=== PATIENT | female | born 1990 | race Caucasian/White ===

== ENCOUNTER 2016-08-08 19:57 | Emergency (ER) | payer MEDICAID | END 2016-08-08 21:29 | disposition home or self-care (01) | LOC: D.ER 19:57 | DX: J11.1 Influenza due to unidentified influenza virus with other respiratory manifestations (principal); J02.0 Streptococcal pharyngitis; F17.200 Nicotine dependence, unspecified, uncomplicated; E11.9 Type 2 diabetes mellitus without complications; Z79.4 Long term (current) use of insulin ==

== ENCOUNTER 2017-01-05 02:15 | Emergency (ER) | payer SELFPAY ==
[2017-01-05 02:50] LABS: BASOPHILS 0.3 % (0-2); EOSINOPHILS 0.5 % (0-7); HEMATOCRIT 38.6 % (36.0-48.0); HEMOGLOBIN 13.5 g/dL (12-16); IMMATURE GRANULOCYTES 1.1 % (0-5); LYMPHOCYTES 38.2 % (15-50); MCH 30.6 pg (26.0-34.0); MCV 87.5 fL (80.0-100.0); MEAN PLATELET VOLUME 10.3 fL (7.4-10.4); MONOCYTES 12.5 % (2-11); NEUTROPHILS 47.4 % (40-80); PLATELET COUNT 190 10x3/uL (130-400); RBC 4.41 10x6/uL (4.00-5.40); RDW 13.8 % (11.5-14.5); WBC 6.2 10x3/uL (4.8-10.8)
[2017-01-05 02:52] LABS: APPEARANCE CLEAR (CLEAR); BILIRUBIN NEGATIVE (NEGATIVE); COLOR YELLOW (YELLOW); GLUCOSE 1000 mg/dL (NEGATIVE); HCG URINE NEGATIVE (NEGATIVE); KETONE LARGE mg/dL (NEGATIVE); LEUKOCYTE ESTERASE NEGATIVE (NEGATIVE); NITRITE NEGATIVE (NEGATIVE); PROTEIN NEGATIVE (NEGATIVE); UROBILINOGEN NORMAL (NORMAL)
[2017-01-05 03:10] LABS: ALBUMIN 3.2 g/dL (3.4-5.0); ALKALINE PHOSPHATASE 140 U/L (46-116); ALT (SGPT) 15 U/L (10-68); BILIRUBIN - TOTAL 0.86 mg/dL (0.2-1.3); CALC OSMOLALITY 280 mosm/kg (275-300); CALCIUM 8.1 mg/dL (8.5-10.1); CARBON DIOXIDE 15.5 mmol/L (21.0-32.0); CHLORIDE - SERUM 95 mmol/L (98-107); CREATININE - SERUM 0.9 mg/dL (0.6-1.3); SODIUM 131 mmol/L (136-145); UREA NITROGEN 7 mg/dL (7-18); eGFR NON AFRICAN AMERICAN 81 mL/min (90-120)
[2017-01-05 03:12] LABS: GLUCOSE 457 mg/dL (74-106)
[2017-01-07 00:44] VITALS: BMI 21.0
== END 2017-01-05 06:45 | disposition home or self-care (01) ==
LOC: D.ER 02:15
PROVIDERS: Emergency Medicine
DX: R10.9 Unspecified abdominal pain (principal); E10.65 Type 1 diabetes mellitus with hyperglycemia; Z79.4 Long term (current) use of insulin

== ENCOUNTER 2017-01-06 21:36 | Inpatient (IN) | payer SELFPAY ==
[~2017-01-06] VITALS: Ht 162.6 cm; Wt 57.5 kg
[2017-01-06 22:13] LABS: APPEARANCE HAZY (CLEAR); BILIRUBIN NEGATIVE (NEGATIVE); COLOR YELLOW (YELLOW); GLUCOSE 1000 mg/dL (NEGATIVE); HEMATOCRIT 40.9 % (36.0-48.0); HEMOGLOBIN 12.9 g/dL (12-16); KETONE LARGE mg/dL (NEGATIVE); MCH 30.3 pg (26.0-34.0); MCHC 31.5 g/dL (31.0-37.0); MEAN PLATELET VOLUME 11.6 fL (7.4-10.4); NITRITE NEGATIVE (NEGATIVE); PLATELET COUNT 310 10x3/uL (130-400); PROTEIN 2+ mg/dL (NEGATIVE); RBC 4.26 10x6/uL (4.00-5.40); RDW 14.1 % (11.5-14.5); UROBILINOGEN NORMAL (NORMAL); WBC 21.6 10x3/uL (4.8-10.8)
[2017-01-06 22:19] LABS: AMORPHOUS SEDIMENT <1+ /lpf (NONE SEEN); BACTERIA MODERATE /hpf (NONE SEEN); EPITHELIAL CELLS 0-5 /hpf (0-5); LEUKOCYTE ESTERASE TRACE (NEGATIVE); RED CELLS - URINE 0-5 /hpf (0-5); WHITE CELLS - URINE 0-5 /hpf (0-5)
[2017-01-06 22:21] LABS: HCG SERUM NEGATIVE (NEGATIVE); UDS - AMPHET POSITIVE QUAL (NEGATIVE); UDS - BARB NEGATIVE QUAL (NEGATIVE); UDS - BENZO NEGATIVE QUAL (NEGATIVE); UDS - COCAINE NEGATIVE QUAL (NEGATIVE); UDS - METH NEGATIVE QUAL (NEGATIVE); UDS - OPIATE NEGATIVE QUAL (NEGATIVE); UDS - PCP NEGATIVE QUAL (NEGATIVE); UDS - THC NEGATIVE QUAL (NEGATIVE)
[2017-01-06 22:24] LABS: ALBUMIN 3.2 g/dL (3.4-5.0); ALKALINE PHOSPHATASE 161 U/L (46-116); BILIRUBIN - TOTAL 0.54 mg/dL (0.2-1.3); CALCIUM 8.3 mg/dL (8.5-10.1); CHLORIDE - SERUM 98 mmol/L (98-107); MAGNESIUM - SERUM 2.5 mg/dL (1.8-2.4); PHOSPHOROUS 8.1 mg/dL (2.5-4.9); PROTEIN - SERUM 7.3 g/dL (6.4-8.2); SODIUM 132 mmol/L (136-145)
[2017-01-06 22:25] LABS: KETONE - SERUM MODERATE mg/dL (NEGATIVE)
[2017-01-06 22:28] LABS: ALT (SGPT) 20 U/L (10-68); CALC OSMOLALITY 312 mosm/kg (275-300); CARBON DIOXIDE 2.3 mmol/L (21.0-32.0); CREATININE - SERUM 1.8 mg/dL (0.6-1.3); GLUCOSE 917 mg/dL (74-106); POTASSIUM - SERUM 4.4 mmol/L (3.5-5.1); UREA NITROGEN 22 mg/dL (7-18); eGFR NON AFRICAN AMERICAN 36 mL/min (90-120)
[2017-01-06 22:29] LABS: LYMPHOCYTES 17 % (15-50); MONOCYTES 5 % (2-11); NEUTROPHILS 73 % (40-80); PLATELET ESTIMATE NORMAL
[2017-01-06 22:52] LABS: HEMOGLOBIN A1C 10.1 % (4.8-6.0)
[2017-01-07] VITALS (25 sets, daily range): BP systolic 87–121; BP diastolic 54–88; Ht 162.6 cm; Wt 57.5 kg
--- NOTE | 2017-01-07 00:15 | NUR ---
PT ARRIVED AT 0005 FROM THE ED WITH MOM,DAD, AND SISTER. HX WAS ANSWERED FROM FAMILY DUE TO THE PT BEING UNRESPONSIVE. PT BS CHECKED WHEN SHE ARRIVED WAS 522. DR. HUERTAS WAS AT BEDSIDE ON ARRIVAL WAS TOLD TO INCREASE THE INSULIN FROM 5 TO 7 UNITS/HOUR.PT ASSESSED AND POSITIONED FOR COMFORT.
--- NOTE | 2017-01-07 02:15 | NUR ---
PT MENTAL STATUS IS IMPROVING SHE IS OPENING HER EYES AND ATTEMPTING TO TALK TO ME. WILL CONTINUE TO MONITOR.
--- NOTE | 2017-01-07 03:30 | NUR ---
PT SAID SHE NEEDED TO HAVE A BM GOT UP TO BED SIDE COMMODE AND IN THE PROCESS DISCOVERED THAT SHE HAD PULLED HER DOWNEY OUT. SHE ATTEMPTED TO URINATE HAD A SMALL AMOUT OF BLOODY URINE.
[2017-01-07 03:51] LABS: BASOPHILS 0.1 % (0-2); EOSINOPHILS 0 % (0-7); HEMATOCRIT 34.8 % (36.0-48.0); HEMOGLOBIN 12.3 g/dL (12-16); IMMATURE GRANULOCYTES 1.7 % (0-5); LYMPHOCYTES 10.3 % (15-50); MCH 30.6 pg (26.0-34.0); MCHC 35.3 g/dL (31.0-37.0); MEAN PLATELET VOLUME 10.5 fL (7.4-10.4); MONOCYTES 5.3 % (2-11); NEUTROPHILS 82.6 % (40-80); RBC 4.02 10x6/uL (4.00-5.40); RDW 13.4 % (11.5-14.5)
[2017-01-07 03:52] LABS: MCV 86.6 fL (80.0-100.0); PLATELET COUNT 191 10x3/uL (130-400); WBC 15.2 10x3/uL (4.8-10.8)
[2017-01-07 04:05] LABS: ALBUMIN 2.9 g/dL (3.4-5.0); BILIRUBIN - TOTAL 0.6 mg/dL (0.2-1.3); CALCIUM 8.1 mg/dL (8.5-10.1); CREATININE - SERUM 1.4 mg/dL (0.6-1.3); PROTEIN - SERUM 6.7 g/dL (6.4-8.2)
[2017-01-07 04:15] LABS: MAGNESIUM - SERUM 1.6 mg/dL (1.8-2.4)
[2017-01-07 04:16] LABS: ANION GAP 28.4 mmol/L (8-16)
[2017-01-07 04:18] LABS: POTASSIUM - SERUM 2.4 mmol/L (3.5-5.1)
--- NOTE | 2017-01-07 05:00 | NUR ---
PT REQUESTED TO GET TO THE BED SIDE COMMODE ASSISTED HER TO THE COMMODE AND HAD SMALL AMOUNT OF STOOL AND BLLODY URINE. WILL CONTINUE TO MONITOR.
--- NOTE | 2017-01-07 07:00 | NUR ---
PT REPORT REC'D, PT CARE ASSUMED. PT RESTING WITH EYES CLOSED, NO C/O PAIN, VSS, 2LNC. GENERALIZED SCABS/SORES ON BODY NOTED. PT UP TO BEDSIDE COMMODE NEEDED. SHIFT ASSESSMENT COMPLETED, SEE FLOW SHEET. ROOM FREE OF CLUTTER, CALL LIGHT IN REACH, WILL CONTINUE TO MONITOR PT.
[2017-01-07 09:16] LABS: CALCIUM 7.7 mg/dL (8.5-10.1); CREATININE - SERUM 1.3 mg/dL (0.6-1.3); MAGNESIUM - SERUM 1.4 mg/dL (1.8-2.4)
[2017-01-07 09:17] LABS: ANION GAP 18.4 mmol/L (8-16); CARBON DIOXIDE 14.6 mmol/L (21.0-32.0)
--- NOTE | 2017-01-07 10:44 | NUR ---
* Is the patient Alert and Oriented? Yes 0 * PCP Dr. Melina Saez - Screen Examiner [facility] - [phone] * Pharmacy [facility] @ [facility] * Preadmission Environment Home with Family 0 * ADLs Independent 0 * List name and contact numbers for known caregivers / representatives who currently or will assist patient after discharge: Dad - [phone] or [phone] Sister - Sharri [phone] Aunt - Lydia Temple [phone] * Has this patient been hospitalized within the prior 30 days at any hospital? No 01/07/2017 10:34 DCP: Discharge Planning Patient Name: ETHAN BROUSSARD Admission Status: ER Accout number: [id number] Admission Date: 01-06-2017 : 1990 Admission Diagnosis: Attending: DINORA Current LOS: 1 Primary Insurance: UNINSURED DISCOUNT PLAN Discharge Planning Comments: CM met with patient to assess dc plans. Patient is alert & oriented x3, but groggy. She states she lives with her uncle, Lloyd Broussard. She has a 6 year old daughter but does not have custody. She reports she was not taking her insulin due to cost. She states she sees Dr. Melina Saez in [place] (account development representative). At nd, she will need assistance with obtaining medications. Will ask physicians review $4 med list at [facility] to see if any of them are an option. Asked patient about her recreational drug use - she admits to using, but states "not every day". Informed her there are treatment programs but she adamantly refuses, stating " I am can quit anytime and plan to quit now". CM will discuss again prior to discharge. CM will follow. Circulation Assistant: Jennifer Temple
--- NOTE | 2017-01-07 11:00 | NUR ---
PT RESTING WITH EYES CLOSED, VSS, REASSESSMENT COMPLETED, SEE FLOW SHEET. ROOM FREE OF CLUTTER, CALL LIGHT IN REACH, WILL CONTINUE TO MONITOR PT.
--- NOTE | 2017-01-07 12:29 | NUR ---
PT FAMILY AT THE BEDSIDE, ALL QUESTIONS ANSWERED, VSS, WILL CONTINUE TO MONITOR PT.
--- NOTE | 2017-01-07 15:00 | NUR ---
PT RESTING WITH EYES CLOSED, NO C/O PAIN. VSS, REASSESSMENT COMPLETED, SEE FLOW SHEET. ROOM FREE OF CLUTTER, CALL LIGHT IN REACH, WILL CONTINUE TO MONITOR PT.
[2017-01-07 17:12] LABS: CARBON DIOXIDE 18.1 mmol/L (21.0-32.0); MAGNESIUM - SERUM 1.2 mg/dL (1.8-2.4)
[2017-01-07 17:27] LABS: CALCIUM 8.1 mg/dL (8.5-10.1); CREATININE - SERUM 1.2 mg/dL (0.6-1.3)
[2017-01-07 17:28] LABS: ANION GAP 14.2 mmol/L (8-16)
[2017-01-07 17:29] LABS: POTASSIUM - SERUM 2.3 mmol/L (3.5-5.1)
--- NOTE | 2017-01-07 17:30 | NUR ---
PAGED CYNDI MYLES APN TO INFORM OF POTASSIUM AND CHLORIDE LEVELS, AWAITING CALL BACK.
--- NOTE | 2017-01-07 18:03 | NUR ---
SPOKE WITH CYNDI MYLES APN, "FOLLOW ELECTROLYTE PROTOCOL TO REPLACE K+, CHANGE INSULIN GTT TO HUMALOG REGULAR, INTERMEDIATE, ACHS, MAY GIVE HER CLEAR LIQUIDS." WILL CONTINUE TO MONITOR PT.
--- NOTE | 2017-01-07 18:33 | NUR ---
PT FAMILY AT THE BEDSIDE, ALL QUESTIONS ANSWERED, VSS, WILL CONTINUE TO MONITOR PT.
--- NOTE | 2017-01-07 19:30 | NUR ---
REPORT RECIEVED. ASSESSMNET ALERT AND ORIENTATED X4. PT STATED FEELING MUCH BETTER. REPLACING POTASSIUM PER ELECTROLYTE PROTOCOL. VSS. WILL CONTINUE TO MONITOR PT.
--- NOTE | 2017-01-07 21:00 | NUR ---
PT BS WAS 287 GAVE 10 UNITS PER SLIDING SCALE. NO VISITORS AT THIS TIME. PT FAMILY DID CALL UPDATE GIVEN. WILL CONTINUE TO MONITOR.
--- NOTE | 2017-01-07 22:30 | NUR ---
PT REQUESTED SOMETHING TO EAT. CALLED AND GOT HOUSE SUP TO BRINGS SOME SUGAR FREE JELLO. WILL RECHECK BS IN 30 MIN.
--- NOTE | 2017-01-07 23:00 | NUR ---
REASSESSMENT COMPLETED. NO CHANGES. RECHECKED BS WAS 259 DID NOT CORRECT WITH INSULIN WILL CHECK AT 0000 AND ADJUST THEN. WILL CONTINUE TO MONITOR PT.
[2017-01-08] VITALS (26 sets, daily range): BP systolic 87–120; BP diastolic 50–90
--- NOTE | 2017-01-08 01:00 | NUR ---
PT APEARS TO BE ASLEEP IN BED. WILL CONTINUE TO MONITOR PT.
--- NOTE | 2017-01-08 03:00 | NUR ---
RE ASSESSMENT COMPLETED. DENIES ANY NEEDS AT THIS TIME. WILL CONTINUE TO MONITOR.
[2017-01-08 04:53] LABS: BASOPHILS 0.1 % (0-2); EOSINOPHILS 0.1 % (0-7); HEMATOCRIT 30.6 % (36.0-48.0); IMMATURE GRANULOCYTES 0.4 % (0-5); LYMPHOCYTES 11.7 % (15-50); MCH 30.1 pg (26.0-34.0); MCHC 35.9 g/dL (31.0-37.0); MEAN PLATELET VOLUME 10.8 fL (7.4-10.4); MONOCYTES 13.4 % (2-11); NEUTROPHILS 74.3 % (40-80); RBC 3.65 10x6/uL (4.00-5.40); RDW 13.7 % (11.5-14.5); WBC 11.8 10x3/uL (4.8-10.8)
[2017-01-08 05:10] LABS: MCV 83.8 fL (80.0-100.0); PLATELET COUNT 150 10x3/uL (130-400)
[2017-01-08 05:18] LABS: KETONE - SERUM SMALL mg/dL (NEGATIVE)
[2017-01-08 05:30] LABS: ALBUMIN 2.5 g/dL (3.4-5.0); ALKALINE PHOSPHATASE 84 U/L (46-116); ALT (SGPT) 15 U/L (10-68); BILIRUBIN - TOTAL 0.49 mg/dL (0.2-1.3); CALCIUM 8.5 mg/dL (8.5-10.1); CARBON DIOXIDE 20.5 mmol/L (21.0-32.0); CHLORIDE - SERUM 110 mmol/L (98-107); CREATININE - SERUM 1.1 mg/dL (0.6-1.3); PROTEIN - SERUM 5.9 g/dL (6.4-8.2); SODIUM 141 mmol/L (136-145); eGFR NON AFRICAN AMERICAN 64 mL/min (90-120)
[2017-01-08 05:31] LABS: CALC OSMOLALITY 284 mosm/kg (275-300); GLUCOSE 174 mg/dL (74-106); POTASSIUM - SERUM 2.4 mmol/L (3.5-5.1); UREA NITROGEN 12 mg/dL (7-18)
--- NOTE | 2017-01-08 07:00 | NUR ---
PT REPORT REC'D, PT CARE ASSUMED. PT RESTING WITH EYES CLOSED, NO C/O PAIN, VSS 2LNC. RIGHT JUGULAR PIV WITH FLUIDS INFUSING, SEE FLOW SHEET. LEFT FOREARM PIV S/L'ED, DRESSING CDI. UP TO BEDSIDE COMMODE WITH ASSISTANCE. GENERALIZED SCABS AND SORES NOTED, BLISTER/SORE TO GROIN AREA NOTED. SHIFT ASSESSMENT COMPLETED, SEE FLOW SHEET. ROOM FREE OF CLUTTER, CALL LIGHT IN REACH, WILL CONTINUE TO MONITOR PT.
--- NOTE | 2017-01-08 09:30 | NUR ---
NUTRITION MONITORING & EVAL CHART REVIEWED. CLEAR LIQUID DIET STARTED. WILL CONTINUE TO MONITOR DIET ADVANCEMENT, PT PROGRESS. RD FOLLOWING
--- NOTE | 2017-01-08 10:35 | NUR ---
DR. HUERTAS AT THE BEDSIDE, ALL QUESTIONS ANSWERED, VSS, WILL CONTINUE TO MONITOR PT.
--- NOTE | 2017-01-08 11:00 | NUR ---
PT AAOX4 SITTING UP IN BED WATCHING TV, NO C/O PAIN, VSS, REASSESSMENT COMPLETED, SEE FLOW SHEET. ROOM FREE OF CLUTTER, CALL LIGHT IN REACH, WILL CONTINUE TO MONITOR PT.
--- NOTE | 2017-01-08 11:32 | NUR ---
01/08/2017 11:11 DCP: Discharge Planning CM met with patient. She is more alert & talkative today. Discussed drug treatment options - Explained she will have to refer herself to any drug treatment program, but that I will assist her.Patient now states, "I'll think about it". Since she is presently uninsured & a [facility] resident, her best option will be [facility], if there is travon money available. Called [facility] to check bed & travon availability - voice message left for admissions person to return call. Call placed to pharmacist at [facility] - they confirm they do not offer any insulin on their $4 co pay list. Called Dr. Melina Saez's nurse to inquire about assistance with insulin - message left for return call . CM will follow.
--- NOTE | 2017-01-08 11:37 | NUR ---
CHECKED PT'S FSBS, TOO "HIGH" FOR GLUCOMETER, INFORMED DR. HUERTAS, "LAB DRAW GLUCOSE, STOP D5 1/2 NS, BEGIN NS +20 MEQ K+ AT 250ML/HR, GIVE 20 UNITS HUMALOG AND 2O UNITS OF LANTUS, WE WILL CONTINUE TO MONITOR FROM THERE" WILL CONTINUE TO MONITOR PT.
--- NOTE | 2017-01-08 11:40 | NUR ---
CHECKED PTS FSBS, TOO "HIGH" FOR GLUCOMETER, INFORMED , "LAB DRAW GLULCOSE, STOP D5 1/2 NS, BEGIN NS+ 20MeQ K+ AT 125 ML/HR, GIVE 20 UNITS HUMALOG AND 20 UNITS OF LANTUS, WE WILL CONTINUE TO MONITOR FROM THERE." WILL CONITNUE TO MONITOR PT.
--- NOTE | 2017-01-08 18:00 | NUR ---
PT FAMILY AT THE BEDSIDE, ALL QUESTIONS ANSWERED, VSS, WILL CONTINUE TO MONITOR PT.
--- NOTE | 2017-01-08 19:15 | NUR ---
REPORT RECIVED, SHIFT ASSESSMENT COMPLETE, PT IS ALERT AND ORIENTED, ON 2L NC WITH 98% O2 SAT. LUNGS CLEAR IN ALL LOBES, S1S2, CM-NSR, PATENT RIGHT EJ...SEE IV FLOW SHEET. ABDOMEN IS SOFT AND FLAT WITH ACTIVE BS, BSC AT BEDSIDE, ALL PPP, VSS, CALL LIGHT IN REACH
--- NOTE | 2017-01-08 21:15 | NUR ---
NO VISITORS AT THIS TIME, WILL CON'T TO MONITOR
--- NOTE | 2017-01-08 23:15 | NUR ---
REASSESSMENT COMPLETE, NO CHANGES NOTED, PT RESTING AT THIS TIME, NO NEEDS NOTED, VSS, CALL LIGHT IN REACH
[2017-01-09] VITALS (16 sets, daily range): BP systolic 82–120; BP diastolic 60–85
--- NOTE | 2017-01-09 01:20 | NUR ---
PT RESTING AT THIS TIME, NO NEEDS NOTED, WILL CON'T TO MONITOR
--- NOTE | 2017-01-09 03:00 | NUR ---
REASSESSMENT COMPLETE, NO CHANGES NOTED, PT UPTO BSC, NO OTHER NEEDS NOTED, VSS, CALL LIGHT IN REACH
[2017-01-09] MEDS ORDERED: NOVOLOG100 U/M1 SC ×2 (04:17→13:47)
[2017-01-09 04:45] LABS: BASOPHILS 0.1 % (0-2); EOSINOPHILS 0.8 % (0-7); HEMATOCRIT 30.9 % (36.0-48.0); HEMOGLOBIN 10.8 g/dL (12-16); IMMATURE GRANULOCYTES 0.4 % (0-5); LYMPHOCYTES 26.4 % (15-50); MEAN PLATELET VOLUME 11.1 fL (7.4-10.4); MONOCYTES 12.3 % (2-11); RDW 14.1 % (11.5-14.5)
[2017-01-09 04:50] LABS: ALBUMIN 2.3 g/dL (3.4-5.0); ALKALINE PHOSPHATASE 87 U/L (46-116); ALT (SGPT) 23 U/L (10-68); BILIRUBIN - TOTAL 0.67 mg/dL (0.2-1.3); CALC OSMOLALITY 284 mosm/kg (275-300); CHLORIDE - SERUM 112 mmol/L (98-107); CREATININE - SERUM 0.9 mg/dL (0.6-1.3); GLUCOSE 119 mg/dL (74-106); POTASSIUM - SERUM 3.2 mmol/L (3.5-5.1); PROTEIN - SERUM 5.6 g/dL (6.4-8.2); SODIUM 143 mmol/L (136-145); UREA NITROGEN 11 mg/dL (7-18); eGFR NON AFRICAN AMERICAN 81 mL/min (90-120)
[2017-01-09 04:51] LABS: MCV 85.8 fL (80.0-100.0); PLATELET COUNT 106 10x3/uL (130-400)
--- NOTE | 2017-01-09 05:30 | NUR ---
PT RESTING AT THIS TIME, NO NEEDS NOTED, WILL CON'T TO MONITOR
--- NOTE | 2017-01-09 07:00 | NUR ---
AWAKE, ALERT AND ORIENTED. REPORTS NO PAIN AT THIS TIME. R EJ PATENT, DRESSING INTACT AND ADHERED TO SKIN. NO REDNESS OR SWELLING NOTED. NS + 20KCL INFUSING AT 125ML/HR. L FOREARM SLOCK. PATENT, DRESSING INTACT. 02 AT 2L VIA NC. LUNG SOUNDS CLEAR THROUGH OUT. S1S2 SINUS RHYTHM. RADIAL PULSES 2+ EQUAL BILATERAL. PEDAL PULSES 2+ EQUAL BILATERALLY. SKIN WARN DRY. GENERALIZED SCABS NOTED. TATOOS NOTED ON L THIGH, L ANKLE, R FOOT. BS ACTIVE X 4. ABDOMEN FIRM. ASSISTED TO BEDSIDE COMODE. BROWN, FORMED BM NOTED. 300 ML YELLOW URINE. AMBULATES WELL ONTO BEDSIDE COMODE. NO OTHER NEEDS AT THIS TIME.
--- NOTE | 2017-01-09 08:31 | NUR ---
AM MEDS GIVEN. PT TOLERATED WELL.
--- NOTE | 2017-01-09 10:09 | EC ---
PATIENT:ETHAN BROUSSARD DATE OF SERVICE: 01/07/17 SEX: F MEDICAL RECORD: [id number] DATE OF : [birth year] LOCATION:[facility] D230 AGE OF PATIENT: 26 ADMISSION DATE: 01/06/17 REFERRING PHYSICIAN: INTERPRETING PHYSICIAN: CANELO VILLAGOMEZ MD ECHOCARDIOGRAM REPORT ECHO CHARGES 4 ECHO COMPLETE CLINICAL DIAGNOSIS: IV DRUG USE ECHOCARDIOGRAPHIC MEASUREMENTS (adult normal given) AC root (d.<3.7cm) 2.2 LV Septum d (<1.2 cm> 0.8 Valve Excursion 1.6 LV Septum (systole) 1.3 Left Atria (s.<4.0cm> 2.3 LVPW d(<1.2cm) 0.9 RV (d.<2.3cm) 2.2 LVPW (sytole) 1.5 LV diastole(<5.6CM) 4.3 MV E-F(>70mm/sec) LV systole 2.0 LVOT Diameter 1.6 MV exc.(>10mm) Est.ejection fraction (50-75%) Pericardial Effusion N DOPPLER: LVIT A 69.0 E 93.0 LA RVSP 25.0 LVOT 192 AOP1/2T Asc. Ao 197 RVOT 100 RA PA 115 AV Gradient Peak 16.0 AV Mean 8.2 AV Area 1.7 MV Gradient Peak 4.6 MV Mean 1.6 MV Area COMMENTS: Medical Laboratory Technical Officer: Tashi DEVRIESOE Sweat Band Sewer:1 Dr. Villagomez TAPE# PACS TWO-DIMENSIONAL ECHOCARDIOGRAM WITH DOPPLER 1. Left ventricular chamber size is within normal limits. Left ventricular systolic function is normal. Overall ejection fraction is estimated at 60 percent. 2. Left atrium, right atrium, and right ventricular chamber sizes are within normal limits. 3. Valvular structures have normal structure and motion. 4. Doppler interrogation reveals no hemodynamically significant valvular insufficiency or stenosis. 5. No evidence of pericardial effusion or left ventricular thrombus. ECHOCARDIOGRAM REPORT [id number] ETHAN BROUSSARD 6. No evidence of vegetative endocarditis. CANELO VILLAGOMEZ MD at 1009 CC: [id number] DICTATION DATE: 01/07/17 1500 CUFF MATCHER: MICHAEL 01/07/17 1926 [place] [address]
--- NOTE | 2017-01-09 11:04 | NUR ---
SPOKE WITH DR. HUERTAS. SHE STATES THAT PT IS STABLE ENOUGH TO LEAVE UNIT.
--- NOTE | 2017-01-09 11:35 | NUR ---
BLOOD SUGAR 239. 10 UNITS OF HUMALOG GIVEN PER SLIDING SCALE.
--- NOTE | 2017-01-09 12:47 | NUR ---
POTASSIUM 3.5. POTASSIUM INFUSING PER ELECTROLYTE PROTOCOL.
--- NOTE | 2017-01-09 13:37 | NUR ---
01/09/2017 13:24 DCP: Discharge Planning Call placed to [facility] again, another message left. Met with patient - she does not want to go to [facility] or any other rehab at this time. She states she will call [facility] when & if she decides to go. At ca, patient will return home. She is unable to afford Lantus & Humalog. Discussed above with Dr. Payan - she will change the Humalog to Novolin which will cost the patient $24.88 per 10cc vial. Patient will discharge home with 2 Lantus Pens & 30 tips, which will last patient for 30 days. Patient states she can afford the cost of the Novolin. Information printed and given to patient on [facility] - patient assistance program for Lantus & Humalog. She states she will go online and apply for assistance. She states she plans to follow up with Dr. Saez in [place] and Dr. Payan. Also provided patient with drug rehab facilities. Answered all questions. Anticipate dc this afternoon or tomorrow morning.
[2017-01-09] MEDS ORDERED: LANTUS INSULIN10 ML SC (13:48)
--- NOTE | 2017-01-09 14:02 | NUR ---
ACCESSED PATIENT'S CHART TO ASSIST WITH DISCHARGE PAPERWORK/PLANNING
--- NOTE | 2017-01-09 14:48 | NUR ---
UP TO BEDSIDE COMODE. 500ML YELLOW URINE. FORMED BM. NO OTHER NEEDS AT THIS TIME.
[2017-01-09] MEDS ORDERED: NOVOLIN R100 U/ML SQ (15:37)
--- NOTE | 2017-01-09 15:45 | NUR ---
ORDERS GIVEN FOR DISCAHRGE, DISCONNECTED FROM [facility] MONITORS, AAO, FAMILY AT BEDSIDE, EDUCATION GIVEN ON INSULIN SLIDING SCALE, RIGHT EJ PIV DC'D WITH CATH INTACT, GAUZE DRESSING APPLIED, AWAITING INSULIN FROM HOSPITAL PHARMACY DISCHARGE,
--- NOTE | 2017-01-09 17:05 | NUR ---
DISCHARGED HOME AND ESCORTED VIA WHEEL CHAIR TO FAMILY VEHICLE, AAO, REGULAR INSULIN I VIAL, 6 INSULIN SYRINGES, LANTUS PENS X2, GIVEN, NO NEEDS AT THIS TIME
== END 2017-01-09 17:05 | disposition home or self-care (01) | DRG 638 ==
LOC: D.ER 21:36 → D.ICU 23:04
PROVIDERS: Emergency Medicine; ADMIT Emergency Medicine
DX: E13.10 Other specified diabetes mellitus with ketoacidosis without coma (principal); N76.4 Abscess of vulva; Z79.4 Long term (current) use of insulin; F15.10 Other stimulant abuse, uncomplicated; T68.XXXA Hypothermia, initial encounter; R41.0 Disorientation, unspecified

== ENCOUNTER 2017-04-09 18:28 | Emergency (ER) | payer BC, MEDICAID ==
[2017-01-07 09:36] VITALS: BMI 20.9
[~2017-04-09 18:28] MED LIST: LANTUS INSULIN10 ML SC; NOVOLIN R100 U/ML SQ; NOVOLOG100 U/M1 SC
[2017-04-09 18:55] LABS: BASOPHILS 0.8 % (0-2); EOSINOPHILS 0.9 % (0-7); HEMATOCRIT 40.8 % (36.0-48.0); IMMATURE GRANULOCYTES 1.5 % (0-5); LYMPHOCYTES 39.8 % (15-50); MCH 29.9 pg (26.0-34.0); MCHC 34.3 g/dL (31.0-37.0); MCV 87.2 fL (80.0-100.0); MEAN PLATELET VOLUME 9.9 fL (7.4-10.4); MONOCYTES 9.4 % (2-11); NEUTROPHILS 47.6 % (40-80); RBC 4.68 10x6/uL (4.00-5.40); RDW 12.7 % (11.5-14.5); WBC 6.5 10x3/uL (4.8-10.8)
[2017-04-09 18:59] LABS: PLATELET COUNT 199 10x3/uL (130-400)
[2017-04-09 19:10] LABS: APPEARANCE SLT CLOUDY (CLEAR); BILIRUBIN NEGATIVE (NEGATIVE); COLOR YELLOW (YELLOW); GLUCOSE 1000 mg/dL (NEGATIVE); KETONE MODERATE mg/dL (NEGATIVE); NITRITE POSITIVE (NEGATIVE); PROTEIN NEGATIVE (NEGATIVE); SPECIFIC GRAVITY 1.015 (1.005-1.020); UROBILINOGEN NORMAL (NORMAL)
[2017-04-09 19:10] LABS: HCG SERUM POSITIVE (NEGATIVE)
[2017-04-09 19:12] LABS: BACTERIA FEW /hpf (NONE SEEN)
[2017-04-09 19:17] LABS: UDS - AMPHET NEGATIVE QUAL (NEGATIVE); UDS - BARB NEGATIVE QUAL (NEGATIVE); UDS - BENZO NEGATIVE QUAL (NEGATIVE); UDS - COCAINE NEGATIVE QUAL (NEGATIVE); UDS - OPIATE NEGATIVE QUAL (NEGATIVE); UDS - PCP NEGATIVE QUAL (NEGATIVE); UDS - THC NEGATIVE QUAL (NEGATIVE)
== END 2017-04-09 21:40 | disposition home or self-care (01) ==
LOC: D.ER 18:28
PROVIDERS: Emergency Medicine; Nurse Practitioner Family
DX: O23.41 Unspecified infection of urinary tract in pregnancy, first trimester (principal); Z3A.00 Weeks of gestation of pregnancy not specified; E11.9 Type 2 diabetes mellitus without complications; Z79.4 Long term (current) use of insulin

== ENCOUNTER 2017-05-10 17:34 | Emergency (ER) | payer BC, MEDICAID ==
[2017-01-07 09:36] VITALS: BMI 20.9
[2017-05-10 18:22] LABS: APPEARANCE CLEAR (CLEAR); BILIRUBIN NEGATIVE (NEGATIVE); COLOR YELLOW (YELLOW); GLUCOSE 1000 mg/dL (NEGATIVE); KETONE NEGATIVE (NEGATIVE); NITRITE NEGATIVE (NEGATIVE); PROTEIN NEGATIVE (NEGATIVE); UROBILINOGEN NORMAL (NORMAL)
[2017-05-10 18:43] LABS: BASOPHILS 0.9 % (0-2); EOSINOPHILS 0.9 % (0-7); HEMATOCRIT 38.4 % (36.0-48.0); HEMOGLOBIN 12.8 g/dL (12-16); IMMATURE GRANULOCYTES 1.5 % (0-5); LYMPHOCYTES 48.2 % (15-50); MCH 29.2 pg (26.0-34.0); MCHC 33.3 g/dL (31.0-37.0); MCV 87.5 fL (80.0-100.0); MEAN PLATELET VOLUME 9.7 fL (7.4-10.4); NEUTROPHILS 37.5 % (40-80); PLATELET COUNT 231 10x3/uL (130-400); RBC 4.39 10x6/uL (4.00-5.40); RDW 13.1 % (11.5-14.5); WBC 10.1 10x3/uL (4.8-10.8)
[2017-05-10 18:47] LABS: ALBUMIN 3.1 g/dL (3.4-5.0); ALKALINE PHOSPHATASE 106 U/L (46-116); ALT (SGPT) 27 U/L (10-68); BILIRUBIN - TOTAL 0.69 mg/dL (0.2-1.3); CALC OSMOLALITY 282 mosm/kg (275-300); CALCIUM 8.5 mg/dL (8.5-10.1); CARBON DIOXIDE 23.7 mmol/L (21.0-32.0); CHLORIDE - SERUM 100 mmol/L (98-107); CREATININE - SERUM 0.6 mg/dL (0.6-1.3); PROTEIN - SERUM 7.4 g/dL (6.4-8.2); SODIUM 135 mmol/L (136-145); UREA NITROGEN 11 mg/dL (7-18); eGFR NON AFRICAN AMERICAN > 90 mL/min (90-120)
[2017-05-10 18:51] LABS: GLUCOSE 358 mg/dL (74-106)
[2017-05-10 19:09] LABS: HCG - QUANTITATIVE (MATERNAL) 5359 mIU/mL
== END 2017-05-10 20:22 | disposition home or self-care (01) ==
LOC: D.ER 17:34
PROVIDERS: Emergency Medicine
DX: O20.0 Threatened abortion (principal); Z3A.12 12 weeks gestation of pregnancy; O20.9 Hemorrhage in early pregnancy, unspecified; E11.9 Type 2 diabetes mellitus without complications; Z79.4 Long term (current) use of insulin

== ENCOUNTER 2017-05-12 07:37 | Emergency (ER) | payer MEDICAID ==
[2017-01-07 09:36] VITALS: BMI 20.9
[2017-05-12 08:25] LABS: BASOPHILS 0.4 % (0-2); EOSINOPHILS 0.3 % (0-7); HEMATOCRIT 33.1 % (36.0-48.0); HEMOGLOBIN 11.2 g/dL (12-16); IMMATURE GRANULOCYTES 1.5 % (0-5); LYMPHOCYTES 32.6 % (15-50); MCHC 33.8 g/dL (31.0-37.0); MCV 85.8 fL (80.0-100.0); MEAN PLATELET VOLUME 9.7 fL (7.4-10.4); NEUTROPHILS 57.2 % (40-80); PLATELET COUNT 252 10x3/uL (130-400); RBC 3.86 10x6/uL (4.00-5.40); RDW 13.1 % (11.5-14.5)
[2017-05-12 08:45] LABS: HCG SERUM POSITIVE (NEGATIVE)
[2017-05-12 08:47] LABS: WBC 16.2 10x3/uL (4.8-10.8)
[2017-05-12 08:53] LABS: ALKALINE PHOSPHATASE 130 U/L (46-116); ALT (SGPT) 22 U/L (10-68); BILIRUBIN - TOTAL 0.57 mg/dL (0.2-1.3); CALC OSMOLALITY 276 mosm/kg (275-300); CALCIUM 8.8 mg/dL (8.5-10.1); CARBON DIOXIDE 23.8 mmol/L (21.0-32.0); CHLORIDE - SERUM 97 mmol/L (98-107); CREATININE - SERUM 0.5 mg/dL (0.6-1.3); GLUCOSE 390 mg/dL (74-106); POTASSIUM - SERUM 3.9 mmol/L (3.5-5.1); SODIUM 130 mmol/L (136-145); UREA NITROGEN 13 mg/dL (7-18); eGFR NON AFRICAN AMERICAN > 90 mL/min (90-120)
[2017-05-12 09:14] LABS: HCG - QUANTITATIVE (MATERNAL) 2332 mIU/mL
== END 2017-05-12 10:59 | disposition home or self-care (01) ==
LOC: D.ER 07:37
PROVIDERS: Emergency Medicine
DX: O03.9 Complete or unspecified spontaneous abortion without complication (principal); E11.9 Type 2 diabetes mellitus without complications; Z79.4 Long term (current) use of insulin

== ENCOUNTER → 2019-03-04 12:03 | Outpatient (CLI) | payer MEDICAID ==
[2017-01-07 09:36] VITALS: BMI 20.9
== END | disposition home or self-care (01) ==
LOC: D.LDO 12:03
PROVIDERS: ATTEND Obstetrics & Gynecology
DX: O24.913 Unspecified diabetes mellitus in pregnancy, third trimester (principal); Z3A.29 29 weeks gestation of pregnancy

== ENCOUNTER → 2019-03-08 12:53 | Outpatient (CLI) | payer MEDICAID ==
[2017-01-07 09:36] VITALS: BMI 20.9
== END | disposition home or self-care (01) ==
LOC: D.LDO 12:53
PROVIDERS: ATTEND Obstetrics & Gynecology
DX: O26.893 Other specified pregnancy related conditions, third trimester (principal); Z3A.31 31 weeks gestation of pregnancy

== ENCOUNTER → 2019-03-11 09:33 | Outpatient (CLI) | payer MEDICAID ==
[2017-01-07 09:36] VITALS: BMI 20.9
== END | disposition home or self-care (01) ==
LOC: D.LDO 09:33
PROVIDERS: ATTEND Obstetrics & Gynecology
DX: O24.913 Unspecified diabetes mellitus in pregnancy, third trimester (principal); Z3A.30 30 weeks gestation of pregnancy

== ENCOUNTER 2019-03-15 11:24 | Outpatient (CLI) | payer MEDICAID ==
[2017-01-07 09:36] VITALS: BMI 20.9
== END 2019-03-15 14:06 ==
LOC: D.LDO 11:24
PROVIDERS: ATTEND Obstetrics & Gynecology
DX: O24.913 Unspecified diabetes mellitus in pregnancy, third trimester (principal); Z3A.31 31 weeks gestation of pregnancy

== ENCOUNTER → 2019-03-17 16:42 | Outpatient (CLI) | payer MEDICAID ==
[2017-01-07 09:36] VITALS: BMI 20.9
== END | disposition home or self-care (01) ==
LOC: D.LDO 16:42
PROVIDERS: ATTEND Obstetrics & Gynecology
DX: O40.3XX0 Polyhydramnios, third trimester, not applicable or unspecified (principal); Z3A.31 31 weeks gestation of pregnancy

== ENCOUNTER → 2019-03-21 15:01 | Outpatient (CLI) | payer MEDICAID ==
[2017-01-07 09:36] VITALS: BMI 20.9
== END | disposition home or self-care (01) ==
LOC: D.LDO 15:01
PROVIDERS: ATTEND Obstetrics & Gynecology
DX: O24.913 Unspecified diabetes mellitus in pregnancy, third trimester (principal)

== ENCOUNTER → 2019-03-24 12:45 | Outpatient (CLI) | payer MEDICAID ==
[2017-01-07 09:36] VITALS: BMI 20.9
== END | disposition home or self-care (01) ==
LOC: D.LDO 12:45
PROVIDERS: ATTEND Obstetrics & Gynecology
DX: O40.9XX0 Polyhydramnios, unspecified trimester, not applicable or unspecified (principal); E11.9 Type 2 diabetes mellitus without complications

== ENCOUNTER 2019-03-28 13:00 | Outpatient (CLI) | payer MEDICAID ==
[2017-01-07 09:36] VITALS: BMI 20.9
== END 2019-03-29 03:30 | disposition home or self-care (01) ==
LOC: D.LDO 13:00 → D.LD 23:06 → D.LDO 03-29 03:30
PROVIDERS: ATTEND Student in an Organized Health Care Education/Training Program
DX: O26.899 Other specified pregnancy related conditions, unspecified trimester (principal); Z3A.00 Weeks of gestation of pregnancy not specified

== ENCOUNTER → 2019-04-04 09:40 | Outpatient (CLI) | payer MEDICAID ==
[2017-01-07 09:36] VITALS: BMI 20.9
== END | disposition home or self-care (01) ==
LOC: D.LDO 09:40
PROVIDERS: ATTEND Obstetrics & Gynecology
DX: O24.419 Gestational diabetes mellitus in pregnancy, unspecified control (principal)

== ENCOUNTER → 2019-04-07 15:48 | Outpatient (CLI) | payer MEDICAID ==
[2017-01-07 09:36] VITALS: BMI 20.9
== END | disposition home or self-care (01) ==
LOC: D.LDO 15:48
PROVIDERS: ATTEND Obstetrics & Gynecology
DX: O24.919 Unspecified diabetes mellitus in pregnancy, unspecified trimester (principal)